=== PATIENT | male | born 1930 | race Caucasian/White ===

== ENCOUNTER 2016-08-21 15:09 | Emergency (ER) | payer BC, MEDICARE, OTHER ==
[~2016-08-21] VITALS: Ht 177.8 cm; Wt 76.2 kg
[2016-08-21] MEDS ORDERED: ASPIRIN81 MG PO (17:29)
== END 2016-08-21 17:04 | disposition short-term general hospital (02) ==
LOC: ER 15:09
DX: J01.90 Acute sinusitis, unspecified (principal); R42 Dizziness and giddiness; Z79.82 Long term (current) use of aspirin; Z79.899 Other long term (current) drug therapy; I10 Essential (primary) hypertension; G47.00 Insomnia, unspecified; K21.9 Gastro-esophageal reflux disease without esophagitis; Z88.2 Allergy status to sulfonamides; Z91.048 Other nonmedicinal substance allergy status